=== PATIENT | female | born 1965 | race Caucasian/White ===

== ENCOUNTER 2021-05-31 14:41 | Emergency (ER) | payer SELFPAY | END 2021-05-31 16:24 | disposition home or self-care (01) | LOC: CSHERS 14:41 | DX: K04.7 Periapical abscess without sinus (principal) | CPT/HCPCS: 99283 ==

== ENCOUNTER 2021-08-03 07:59 | Emergency (ER) | payer BC, SELFPAY ==
[2021-08-03] MEDS ORDERED: Ondansetron PF 4 MG/2 ML Vial ONE (09:06)
[2021-08-03] MEDS ORDERED: Morphine 4 MG/ML VIAL ONE (09:06)
[2021-08-03 09:22] LABS: #Eosinphils 0.2 10x3/uL (0.0-0.5); #Monocytes 0.7 10x3/uL (0.0-1.1); %Basophils 0.6 % (0.0-2.0); %Eosinophils 3.3 % (0.0-6.0); %Lymphocytes 23.7 % (18.0-47.0); %Monocytes 10.4 % (0.0-10.0); %Neutrophils 61.7 % (40.0-75.0); Hemoglobin 12.9 g/dL (12.0-15.5); Mean Corpuscular Hemoglobin 29.2 pg (27.0-33.0); Mean Corpuscular Volume 88.5 fl (81.6-98.3); Mean Platelet Volume 11.2 fl (7.4-10.4); Platelet Count 226 10x3/uL (150-450); RBC Distribution Width 13.9 % (11.5-14.5); Red Blood Cell (RBC) Count 4.42 10x6/uL (3.90-5.03); White Blood Cell (WBC) Count 6.4 10x3/uL (3.5-10.5)
[2021-08-03 09:39] LABS: ALT (SGPT) 24 U/L (8-55); AST (SGOT) 23 U/L (5-34); Alkaline Phosphatase 122 U/L (40-110); Anion Gap 16 mmol/L (10-20); BUN (Urea Nitrogen) 13 mg/dL (9.8-20.1); Bilirubin, Total 1.4 mg/dL (0.2-1.2); Calc. Creatinine Clearance 0 mL/min (70-130); Carbon Dioxide 25 mmol/L (22-29); Chloride 105 mmol/L (98-107); Globulin 3.4 g/dL (2.4-3.5); Glucose 94 mg/dL (70-105); Lipase 33 U/L (8-78); Potassium 4.2 mmol/L (3.5-5.1); Protein, Total 7.4 g/dL (6.0-8.3); Sodium 142 mmol/L (136-145)
[2021-08-03] MEDS ORDERED: Iopamidol 300 61% 100 ML VIAL FS ONE (14:38)
== END 2021-08-03 11:04 | disposition home or self-care (01) ==
LOC: CSHERS 07:59
DX: K57.33 Diverticulitis of large intestine without perforation or abscess with bleeding (principal)
CPT/HCPCS: 74177; 80053; 83690; 85025; 86850; 86900; 86901; 96374; 96375; J2270; J2405; Q9967

== ENCOUNTER 2021-08-05 15:46 | Outpatient (CLI) | payer BC | END 2021-08-05 15:47 | disposition home or self-care (01) | LOC: CSHULT 15:46 | PROVIDERS: ATTEND Family Medicine | DX: R10.2 Pelvic and perineal pain (principal); R93.89 Abnormal findings on diagnostic imaging of other specified body structures | CPT/HCPCS: 76856 ==

== ENCOUNTER 2021-08-06 23:23 | Emergency (ER) | payer BC ==
[~2021-08-06 23:23] MED LIST: Iopamidol 300 61% 100 ML VIAL FS ONE
[2021-08-07 00:12] LABS: Bilirubin Neg (Negative); Blood, Urine Negative (Negative); Glucose, Urine (Dipstick) Normal (Negative); Ketone, Urine Negative (Negative); Leukocyte Negative (Negative); Nitrite Negative (Negative); Protein, Urine (Dipstick) Negative (Neg-Trace); Specific Gravity, Urine 1.015 (1.002-1.036); Urobilinogen Normal mg/dL (Less than 2)
[2021-08-07 00:13] LABS: Clarity Clear (Clear)
[2021-08-07 00:51] LABS: Hemoglobin 13.1 g/dL (12.0-15.5); Mean Corpuscular HGB CONC 33.9 g/dL (32.0-36.0); Mean Corpuscular Hemoglobin 30.1 pg (27.0-33.0); Mean Corpuscular Volume 88.7 fl (81.6-98.3); Mean Platelet Volume 11.2 fl (7.4-10.4); Platelet Count 225 10x3/uL (150-450); RBC Distribution Width 13.2 % (11.5-14.5); Red Blood Cell (RBC) Count 4.35 10x6/uL (3.90-5.03); White Blood Cell (WBC) Count 6.2 10x3/uL (3.5-10.5)
[2021-08-07 00:54] LABS: ALT (SGPT) 28 U/L (8-55); AST (SGOT) 25 U/L (5-34); Albumin 3.9 g/dL (3.5-5.0); Alkaline Phosphatase 116 U/L (40-110); Anion Gap 13 mmol/L (10-20); BUN (Urea Nitrogen) 18 mg/dL (9.8-20.1); Bilirubin, Total 0.7 mg/dL (0.2-1.2); Calc. Creatinine Clearance 0 mL/min (70-130); Calcium 9.3 mg/dL (7.8-10.44); Carbon Dioxide 23 mmol/L (22-29); Chloride 106 mmol/L (98-107); Estimated GFR 103; Globulin 3.4 g/dL (2.4-3.5); Glucose 100 mg/dL (70-105); Protein, Total 7.3 g/dL (6.0-8.3); Sodium 138 mmol/L (136-145)
[2021-08-07 01:05] LABS: MDiff Complete? YES
[2021-08-07 01:09] LABS: Band 4 % (5-11); Eosinophils 5 % (0-10); Lymphocytes 27 % (21-51); Monocytes 7 % (0-10); Neutrophil 52 % (42-75); Reactive Lymphocytes 5 % (0-10)
[2021-08-07 01:10] LABS: Platelet Morphology Comment Appears Adequate; RBC Morphology Normal
== END 2021-08-07 02:03 | disposition home or self-care (01) ==
LOC: CSHERS 23:23
DX: K59.00 Constipation, unspecified (principal); M79.662 Pain in left lower leg
CPT/HCPCS: 36415; 74177; 80053; 81003; 85025; 93005; Q9967

== ENCOUNTER 2021-10-16 10:52 | Day surgery (SDC) | payer BC ==
[2021-10-14 11:47] VITALS: BMI 38.7
[2021-10-16] MEDS ORDERED: PROPOFOL 40 ML ONE (12:53)
== END 2021-10-16 14:30 | disposition home or self-care (01) ==
LOC: CSHSDC 10:52
PROVIDERS: ATTEND Internal Medicine Gastroenterology
PROC: 0DBN8ZZ Excision of Sigmoid Colon, Via Natural or Artificial Opening Endoscopic (ICD-10-PCS; principal; 2021-10-16)
DX: Z12.11 Encounter for screening for malignant neoplasm of colon (principal); D12.5 Benign neoplasm of sigmoid colon; K57.30 Diverticulosis of large intestine without perforation or abscess without bleeding; K64.9 Unspecified hemorrhoids; Z80.0 Family history of malignant neoplasm of digestive organs; J30.9 Allergic rhinitis, unspecified; M54.9 Dorsalgia, unspecified; G89.29 Other chronic pain; E66.9 Obesity, unspecified; Z79.899 Other long term (current) drug therapy; Z98.890 Other specified postprocedural states
CPT/HCPCS: 88305; J2704

== ENCOUNTER 2021-11-10 11:03 | Emergency (ER) | payer BC ==
[2021-11-10 11:48] LABS: #Eosinphils 0.2 10x3/uL (0.0-0.5); #Monocytes 0.6 10x3/uL (0.0-1.1); #Neutrophils 5.1 10x3/uL (1.5-8.4); %Basophils 0.3 % (0.0-2.0); %Eosinophils 2.7 % (0.0-6.0); %Monocytes 8.5 % (0.0-10.0); %Neutrophils 69.4 % (40.0-75.0); Hemoglobin 13.1 g/dL (12.0-15.5); Mean Corpuscular HGB CONC 33.3 g/dL (32.0-36.0); Mean Corpuscular Hemoglobin 29.6 pg (27.0-33.0); Mean Corpuscular Volume 88.9 fl (81.6-98.3); Mean Platelet Volume 10.8 fl (7.4-10.4); Platelet Count 244 10x3/uL (150-450); RBC Distribution Width 14.3 % (11.5-14.5); Red Blood Cell (RBC) Count 4.42 10x6/uL (3.90-5.03); White Blood Cell (WBC) Count 7.3 10x3/uL (3.5-10.5)
[2021-11-10 12:05] LABS: BHCG - Serum Negative (NEGATIVE); Pregs Control Background? CLEAR/WHITE (CLR/WHITE); Pregs Control Bar Appear? YES (CONTROL BAR)
[2021-11-10] MEDS ORDERED: Meclizine HCl 25 MG TAB ONE (12:07)
[2021-11-10] MEDS ORDERED: Prochlorperazine 10 MG/2 ML VIAL ONE (12:07)
[2021-11-10] MEDS ORDERED: Ketorolac Tromethamine 30 MG/ML VIAL ONE (12:08)
[2021-11-10 12:13] LABS: ALT (SGPT) 29 U/L (8-55); AST (SGOT) 31 U/L (5-34); Albumin 4.1 g/dL (3.5-5.0); Alkaline Phosphatase 130 U/L (40-110); Anion Gap 12 mmol/L (10-20); BUN (Urea Nitrogen) 15 mg/dL (9.8-20.1); Bilirubin, Total 1.4 mg/dL (0.2-1.2); CK (CPK) 54 U/L (29-168); Calc. Creatinine Clearance 0 mL/min (70-130); Calcium 9.2 mg/dL (7.8-10.44); Carbon Dioxide 26 mmol/L (22-29); Chloride 107 mmol/L (98-107); Estimated GFR 104; Globulin 3.4 g/dL (2.4-3.5); Glucose 85 mg/dL (70-105); Potassium 4.2 mmol/L (3.5-5.1); Protein, Total 7.5 g/dL (6.0-8.3); Sodium 141 mmol/L (136-145)
[2021-11-10 13:07] LABS: Bilirubin Neg (Negative); Blood, Urine Negative (Negative); Clarity Clear (Clear); Glucose, Urine (Dipstick) Normal (Negative); Ketone, Urine Negative (Negative); Leukocyte Negative (Negative); Nitrite Negative (Negative); Protein, Urine (Dipstick) Negative (Neg-Trace)
== END 2021-11-10 13:14 | disposition home or self-care (01) ==
LOC: CSHERS 11:03
DX: R42 Dizziness and giddiness (principal); R51.9 Headache, unspecified; R11.0 Nausea
CPT/HCPCS: 70450; 71045; 80053; 81003; 82550; 83735; 84703; 85025; 93005; 94760; 96361; 96374; 96375; J0780; J1885

== ENCOUNTER 2022-05-14 16:29 | Emergency (ER) | payer BC, OTHER ==
[2022-05-14] MEDS ORDERED: methylPREDNISolone Sod Succ/PF 125 MG/2 ML VIAL ONE ×2 (16:47→16:54)
[2022-05-14] MEDS ORDERED: diphenhydrAMINE 50 MG/ML VIAL ONE ×2 (16:47→16:54)
[2022-05-14] MEDS ORDERED: Famotidine/PF 20 mg/2ml Vial ONE ×2 (16:48→16:54)
[2022-05-14] MEDS ORDERED: EPINEPHrine 1 MG/ML AMP ONE (16:58)
== END 2022-05-14 19:15 | disposition home or self-care (01) ==
LOC: CSHERS 16:29
DX: T36.8X5A Adverse effect of other systemic antibiotics, initial encounter (principal)
CPT/HCPCS: 96372; 96374; 96375; J0171; J1200; J2930; S0028

== ENCOUNTER 2022-06-19 18:34 | Emergency (ER) | payer BC, OTHER | END 2022-06-19 19:16 | LOC: CSHERS 18:34 | DX: Z53.21 Procedure and treatment not carried out due to patient leaving prior to being seen by health care provider (principal) ==

== ENCOUNTER 2022-10-23 12:20 | Emergency (ER) | payer BC, OTHER ==
[2022-10-23] MEDS ORDERED: Meclizine HCl 25 MG TAB ONE ×2 (13:03→13:07)
[2022-10-23 15:52] LABS: #Eosinphils 0.2 10x3/uL (0.0-0.5); #Monocytes 0.6 10x3/uL (0.0-1.1); %Basophils 0.4 % (0.0-2.0); %Eosinophils 3.5 % (0.0-6.0); %Lymphocytes 29.1 % (18.0-47.0); %Monocytes 8.8 % (0.0-10.0); %Neutrophils 57.9 % (40.0-75.0); Hematocrit 38.9 % (34.9-44.5); Hemoglobin 12.6 g/dL (12.0-15.5); Mean Corpuscular HGB CONC 32.4 g/dL (32.0-36.0); Mean Corpuscular Hemoglobin 29.3 pg (27.0-33.0); Mean Corpuscular Volume 90.5 fl (81.6-98.3); Mean Platelet Volume 11.4 fl (7.4-10.4); Platelet Count 222 10x3/uL (150-450); RBC Distribution Width 13.7 % (11.5-14.5); White Blood Cell (WBC) Count 6.8 10x3/uL (3.5-10.5)
[2022-10-23 16:00] LABS: ALT (SGPT) 25 U/L (8-55); AST (SGOT) 23 U/L (5-34); Albumin 3.9 g/dL (3.5-5.0); Alkaline Phosphatase 125 U/L (40-110); Anion Gap 11 mmol/L (10-20); BUN (Urea Nitrogen) 9 mg/dL (9.8-20.1); Bilirubin, Total 1.1 mg/dL (0.2-1.2); Calc. Creatinine Clearance 0 mL/min (70-130); Calcium 8.8 mg/dL (7.8-10.44); Carbon Dioxide 27 mmol/L (22-29); Chloride 109 mmol/L (98-107); Estimated GFR 105; Globulin 3.1 g/dL (2.4-3.5); Glucose 98 mg/dL (70-105); Magnesium 2.2 mg/dL (1.6-2.6); Potassium 4.5 mmol/L (3.5-5.1); Sodium 142 mmol/L (136-145)
[2022-10-23 16:08] LABS: Troponin I Less than 0.010 ng/mL (< 0.028)
== END 2022-10-23 17:07 | disposition home or self-care (01) ==
LOC: CSHERS 12:20
DX: R42 Dizziness and giddiness (principal); R51.9 Headache, unspecified
CPT/HCPCS: 70450; 80053; 83735; 84484; 85025; 85379; 93005; 96360; 96361

== ENCOUNTER 2023-06-30 10:23 | Outpatient (CLI) | payer BC | END 2023-06-30 10:24 | disposition home or self-care (01) | LOC: CSHMRI 10:23 | PROVIDERS: ATTEND Student in an Organized Health Care Education/Training Program | DX: M25.461 Effusion, right knee (principal); S83.231A Complex tear of medial meniscus, current injury, right knee, initial encounter; M23.91 Unspecified internal derangement of right knee; M84.461A Pathological fracture, right tibia, initial encounter for fracture ==